=== PATIENT | male | born 1945 | race Caucasian/White ===

== ENCOUNTER 2018-09-08 10:05 | Day surgery (SDC) | payer OTHER, MEDICARE ==
[2018-09-08] MEDS ORDERED: LR 1,000 ML IV ONE (10:48)
[2018-09-08] MEDS ORDERED: LIDOCAINE 1% 2 ML INJ ID PRN (10:48)
--- NOTE | 2018-09-08 11:46 | PDANEPAE ---
ANE History of Present Illness here for colonoscopy ANE Past Medical History - Cardiovascular History Hx Hypertension: No Hx Arrhythmias: No Hx Chest Pain: No Hx Coronary Artery / Peripheral Vascular Disease: No Hx CHF / Valvular Disease: No Hx Palpitations: No Cardiovascular History Comment: MILD PULMONARY HTN - Pulmonary History Hx COPD: Yes Hx Asthma/Reactive Airway Disease: No Hx Recent Upper Respiratory Infection: No Hx Oxygen in Use at Home: Yes O2 in Use at Home (L/minute): 2-3 Hx Sleep Apnea: No Sleep Apnea Screening Result - Last Documented: Negative Pulmonary History Comment: CONT OXYGEN. PREV PNEUMONIA - Neurologic History Hx Cerebrovascular Accident: No Hx Seizures: No Hx Dementia: No - Endocrine History Hx Diabetes: No Endocrine History Comment: HYPOTHYROID - Renal History Hx Renal Disorders: Yes Renal History Comment: BPH. CKD - Liver History Hx Hepatic Disorders: No - Neurological & Psychiatric Hx Hx Neurological and Psychiatric Disorders: No - Cancer History Hx Cancer: Yes Cancer History Comment: SKIN - Congenital Disorder History Hx Congenital Disorders: No - GI History Hx Gastrointestinal Disorders: Yes Gastrointestinal History Comment: GERD - Other Health History Other Health History: CERVICAL DISC DX - Chronic Pain History Chronic Pain: No - Surgical History Prior Surgeries: BILATERAL CATARACTS. RT TOTAL SHLDR. LT WRIST LACERATION REPAIR ANE Review of Systems Review of Systems: - Exercise capacity METS (RN): 4 METS ANE Patient History - Allergies Allergies/Adverse Reactions: No Known Allergies Allergy (Unverified 08/24/18 12:06) - Home Medications Home Medications: Aspirin EC DAILY 08/24/18 [Last Taken Unknown] Cialis PRN 08/24/18 [Last Taken Unknown] Dulcolax Stool Softener BID 08/24/18 [Last Taken Unknown] Flovent Diskus BID 08/24/18 [Last Taken 09/08/18 09:15] Herbals/Supplements -Info Only DAILY 08/24/18 [Last Taken Unknown] SIMVASTATIN HS 08/24/18 [Last Taken Unknown] Spiriva Handihaler DAILY 08/24/18 [Last Taken 09/08/18 09:15] Synthroid 50 mcg (*) DAILY 08/24/18 [Last Taken Unknown] Tamsulosin HCl HS 08/24/18 [Last Taken Unknown] Zantac BID 08/24/18 [Last Taken Unknown] - NPO status NPO Status: no food or drink >8 hours NPO Since - Liquids (Date): 09/08/18 NPO Since - Liquids (Time): 08:00 NPO Since - Solids (Date): 09/07/18 NPO Since - Solids (Time): 08:00 - Anes Hx Anes Hx: no prior problems - Smoking Hx Smoking Status: Former smoker - Alcohol Use Alcohol Use: Occasionally - Family Anes Hx Family Anes Hx: none ANE Labs/Vital Signs - Vital Signs Blood Pressure: 151/80 Heart Rate: 72 Respiratory Rate: 18 O2 Sat (%): 99 Height: 177.8 cm Weight: 74.843 kg ANE Physical Exam - Airway Neck exam: FROM Mallampati Score: Class 3 Mouth exam: normal dental/mouth exam - Pulmonary Pulmonary: no respiratory distress, clear to auscultation - Cardiovascular Cardiovascular: regular rate and rhythym, no murmur, rub, or gallop - ASA Status ASA Status: III ANE Anesthesia Plan Anesthesia Plan: GA with mask Total IV Anesthesia: Yes
[2018-09-08] MEDS ORDERED: PROPOFOL/EMULSION 500 MG/50 ML BOTTLE IV ONE (11:50)
--- NOTE | 2018-09-08 11:59 | PDGENHP ---
History & Physical Chief Complaint: screening History of Present Illness: colon cancer screen. HTN, kidney dz, copd with oxygen at night Pertinent Past, Social, Family History: no tobacco quit 1994. alcohol occassionally. FHx - no cc. PMH htn, copd, kidney dz Relevant Physical Exam: A+ox3. CTA. S1S2, RRR Cardiorespiratory Assessment: class 3
[2018-09-08] MEDS ORDERED: NALOXONE HCL 0.4 MG/ML INJ IVP PRN (12:21)
--- NOTE | 2018-09-08 12:56 | POSTANESTH ---
Post Anesthetic Evaluation Cardiovascular Status: Normal, Stable, Similar to Pre-Op Cond Respiratory Status: Normal, Stable, Similar to Pre-op Cond. Level of Consciousness/Mental Status: Can Participate in Eval, Alert and Oriented Pain Control: Adequate, Prn Tx Ordered Nausea/Vomiting Control: Adequate, Prn Tx Ordered Complications Possibly Related to Anesthesia: None Noted
--- NOTE | 2018-09-08 12:59 | GIREPORT ---
[facility] Surgical Services - Endoscopy Department Patient Name: Manoj Figueroa Procedure Date: 09/08/2018 12:03 PM Patient Type: Outpatient Attending MD/ ER Physician: Deng Can MD Procedure: Colonoscopy Indications: Screening for colorectal malignant neoplasm Providers: Deng Can MD Referring MD: Luis Fernando Castro Medicines: Total IV Anesthesia (TIVA) = IV general with spontaneous respirations Complications: No immediate complications. Estimated blood loss: Minimal. Description of Procedure: After obtaining informed consent, the scope was passed under direct vis ion. Throughout the procedure, the patient's blood pressure, pulse, and oxyg en saturations were monitored continuously. The Colonoscope with irrigatio n channel was introduced through the anus and advanced to the cecum, identified by the appendiceal orifice, ileocecal valve and palpation. T he colonoscopy was performed without difficulty. The patient tolerated the procedure well. The quality of the bowel preparation was good. Findings: The digital rectal exam was normal. A 6 mm polyp was found in the cecum. The polyp was multi-lobulated. The polyp was removed with a cold snare. Resection and retrieval were compl ete. Estimated blood loss was minimal. A 3 mm polyp was found in the cecum. The polyp was sessile. The polyp w as removed with a piecemeal technique using a cold biopsy forceps. Resecti on and retrieval were complete. Estimated blood loss was minimal. Two semi-sessile polyps were found in the ascending colon. The polyps w ere 7 to 10 mm in size. These polyps were removed with a cold snare. Resectio n and retrieval were complete. Estimated blood loss was minimal. A 12 mm polyp was found in the proximal transverse colon. The polyp was semi-sessile. The polyp was removed with a cold snare. Resection was complete, but the polyp tissue was not retrieved. Estimated blood loss was minimal. Two semi-sessile polyps were found in the transverse colon. The polyps were 6 to 9 mm in size. These polyps were removed with a cold snare. Resecti on and retrieval were complete. Estimated blood loss was minimal. Multiple medium-mouthed diverticula were found in the sigmoid colon, descending colon, transverse colon and ascending colon. The exam was otherwise without abnormality. Estimated Blood Loss: Estimated blood loss was minimal. Post Op Diagnosis: - One 6 mm polyp in the cecum, removed with a cold snare. Resected and retrieved. - One 3 mm polyp in the cecum, removed piecemeal using a cold biopsy forceps. Resected and retrieved. - Two 7 to 10 mm polyps in the ascending colon, removed with a cold sna re. Resected and retrieved. - One 12 mm polyp in the proximal transverse colon, removed with a cold snare. Complete resection. Polyp tissue not retrieved. - Two 6 to 9 mm polyps in the transverse colon, removed with a cold sna re. Resected and retrieved. - Diverticulosis in the sigmoid colon, in the descending colon, in the transverse colon and in the ascending colon. - The examination was otherwise normal. Recommendation: - Await pathology results. - My office will call with the pathology result with 5-7 days. If you h ave not heard from my office by 12-14, do not assume the pathology is sidney l, please call [phone] to get the pathology results. - Repeat colonoscopy in 3 years for surveillance based on pathology res ults. - Computer models suggest a life expectancy of 7 years to benefit from colonoscopy. - High fiber diet indefinitely. - 30-35 grams of dietary fiber per day. Can use supplemental fiber. - A high fiber diet may decrease risk of complications from diverticulo sis. There is no need to avoid seeds or nuts. - Avoid Aspirin and NSAIDs for 7-10 days except as used for cardiac or stroke prevention. - Patient has a contact number available for emergencies. The signs and symptoms of potential delayed complications were discussed with the pat ient. Return to normal activities tomorrow. Written discharge instructions we re provided to the patient. - Continue present medications. - Discharge patient to home (ambulatory). - Return to primary care physician as previously scheduled. - Thank you for allowing me to help in your patient's care. Do not hesi zamora to call with any questions. Attending Participation: I personally performed the entire procedure. Pamella Barrera M.D Deng Can MD 09/08/2018 12:59:35 PM This report has been signed electronicallyMatthemian Can MD Number of Addenda: 0 Note Initiated On: 09/08/2018 12:03 PM Total Procedure Duration Time 0 hours 37 minutes 3 seconds [email or web address]
[2018-09-08 14:33] VITALS: BP 135/67
== END 2018-09-08 14:26 | disposition home or self-care (01) ==
LOC: FSGY 10:05
PROVIDERS: ATTEND Internal Medicine Gastroenterology
DX: Z12.11 Encounter for screening for malignant neoplasm of colon (principal); D12.0 Benign neoplasm of cecum; D12.2 Benign neoplasm of ascending colon; D12.3 Benign neoplasm of transverse colon; K57.30 Diverticulosis of large intestine without perforation or abscess without bleeding; I27.20 Pulmonary hypertension, unspecified; N18.3 Chronic kidney disease, stage 3 (moderate); E03.9 Hypothyroidism, unspecified; J44.9 Chronic obstructive pulmonary disease, unspecified; M1A.09X0 Idiopathic chronic gout, multiple sites, without tophus (tophi); E78.5 Hyperlipidemia, unspecified
CPT/HCPCS: J2704